=== PATIENT | female | born 1990 | race Caucasian/White ===

== ENCOUNTER → 2018-07-02 | Outpatient (REF) | payer OTHER ==
[2018-07-02 10:24] LABS: PLATELET COUNT, AUTOMATED 379 K/uL (150-450)
== END ==
PROVIDERS: ATTEND Nurse Practitioner Family
DX: R07.9 Chest pain, unspecified (principal); R05 Cough
CPT/HCPCS: 82040; 82247; 82310; 82374; 82435; 82565; 82947; 84075; 84132; 84155; 84295; 84450; 84460; 84520; 85025; 85379

== ENCOUNTER → 2018-07-18 | Outpatient (CLI) | payer OTHER ==
--- NOTE | 2018-07-18 16:55 | RADIOLOGY IMAGING REPORT ---
FACILITY: [facility] - [place] PATIENT NAME: Latanya Whitfield : 1990 MR: [id number] V: [id number] EXAM DATE: ORDERING PHYSICIAN: JYOTHI FOWLER TECHNOLOGIST: Location: [facility] Patient: Latanya Whitfield : 1990 Visit/Account:[id number] Date of Sevice: 07/18/2018 Technique: CHEST PA LAT HISTORY: Cough COMPARISON: None available Findings: The lungs are clear. No pleural effusion or pneumothorax. The cardiomediastinal silhouett e is normal. Impression: 1. No acute cardiopulmonary process. Report Dictated By: Presley Phan DO at 07/18/2018 4:51 PM Report E-Signed By: Presley Phan DO at 07/18/2018 4:52 PM WSN:[id number]
== END ==
LOC: RAD 16:25
PROVIDERS: ATTEND Physician Assistant
DX: R05 Cough (principal)
CPT/HCPCS: 71046

== ENCOUNTER → 2018-12-23 | Outpatient (CLI) | payer OTHER ==
[~2018-12-23] MED LIST: ASCO125T PO; AZEL23SP NS; FLUT16SP19 NS
== END ==
LOC: LAB 15:02
PROVIDERS: ATTEND Nurse Practitioner Family
DX: R19.7 Diarrhea, unspecified (principal)
CPT/HCPCS: 82274; 83630; 87045; 87177

== ENCOUNTER 2018-12-31 07:29 | Emergency (ER) | payer OTHER ==
--- NOTE | 2018-12-31 07:31 | ER Report ---
History and Physical Time Seen By MD: 07:27 HPI/ROS CHIEF COMPLAINT: Migraine headache HISTORY OF PRESENT ILLNESS: Patient is a 28-year-old female here with complaints of headache which started approximately 1 hour prior to arrival. Patient also endorses photosensitivity. Patient was seen here 2 days ago for similar symptoms which were more severe at which time she had a CT scan of the head, lumbar puncture completed which appear normal. Patient is alert and oriented, uncomfortable-appearing, denies taking medications to abort the headache. Patient is afebrile and hemodynamically stable at time of evaluation with no focal neurological findings REVIEW OF SYSTEMS: Constitutional: No fever, no chills. Eyes: No discharge.+ Photosensitivity ENT: No sore throat. Cardiovascular: No chest pain, no palpitations. Respiratory: No cough, no shortness of breath. Gastrointestinal: No abdominal pain, no vomiting. Genitourinary: No hematuria. Musculoskeletal: No back pain. Skin: No rashes. Neurological: + headache,, cranial nerves intact, no focal neurological deficits Allergies: Coded Allergies: peanut (Unverified Allergy, Unknown, 08/09/18) PEANUT BUTTER Home Meds Discontinued Reported Medications Ascorbic Acid (VITAMIN C) Unknown Strength Tab.chew, PO, TAB.CHEW 08/09/18 Discontinued Scripts Azelastine/Fluticasone (DYMISTA NASAL SPRAY) 23 Gm [place].pump, 1 SPRAY NS BID for 30 Days, #1 BOT 3 Refills Prov:BLANCHE DAMON JR, MD 08/28/18 Smoking Status: Never Smoker Constitutional Vital Sign - Last 24 Hours 12/31/18 07:33 Temp 98.1 Pulse 68 Resp 16 B/P (MAP) 110/65 Pulse Ox 94 O2 Delivery Room Air Physical Exam General Appearance: The patient is alert, has no immediate need for airway protection and no signs of toxicity. Uncomfortable appearing Eyes: Pupils equal and round no pallor or injection. ENT, Mouth: Mucous membranes are moist. Respiratory: There are no retractions, lungs are clear to auscultation. Cardiovascular: Regular rate and rhythm. Gastrointestinal: Abdomen is soft and non tender, no masses, bowel sounds normal. Neurological: No focal neurological deficits, cranial nerves intact Skin: Warm and dry, no rashes. Musculoskeletal: Neck is supple non tender. Extremities are nontender, nonswollen and have full range of motion. DIFFERENTIAL DIAGNOSIS: After history and physical exam differential diagnosis was considered for headache including but not limited to subarachnoid hemorrhage, migraine headache, tension headache and infectious causes such as meningitis, pharyngitis and sinusitis. Medical Decision Making Data Points Result Diagram: 12/31/18 0746 12/31/18 0746 Laboratory Hematology Test 12/31/18 07:46 White Blood Count 5.6 k/uL (4.5-11.0) Red Blood Count 4.91 M/uL (4.17-5.56) Hemoglobin 13.7 g/dL (12.0-16.0) Hematocrit 41.0 % (34.0-47.0) Mean Corpuscular Volume 83.4 fL (80.0-96.0) Mean Corpuscular Hemoglobin 28.0 pg (26.0-33.0) Mean Corpuscular Hemoglobin Concent 33.5 g/dL (32.0-36.0) Red Cell Distribution Width 14.6 % (11.5-14.5) H Platelet Count 349 K/uL (150-450) Mean Platelet Volume 7.2 fL (7.2-11.1) Neutrophils (%) (Auto) 45.2 % (39.4-72.5) Lymphocytes (%) (Auto) 45.8 % (17.6-49.6) Monocytes (%) (Auto) 7.2 % (4.1-12.4) Eosinophils (%) (Auto) 1.1 % (0.4-6.7) Basophils (%) (Auto) 0.7 % (0.3-1.4) Nucleated RBC Relative Count (auto) 0.0 /100WBC Neutrophils # (Auto) 2.5 K/uL (2.0-7.4) Lymphocytes # (Auto) 2.6 K/uL (1.3-3.6) Monocytes # (Auto) 0.4 K/uL (0.3-1.0) Eosinophils # (Auto) 0.1 K/uL (0.0-0.5) Basophils # (Auto) 0.0 K/uL (0.0-0.1) Nucleated RBC Absolute Count (auto) 0.00 K/uL Chemistry Test 12/31/18 07:46 Sodium Level 140 mmol/L (137-145) Potassium Level 3.7 mmol/L (3.5-5.0) Chloride Level 108 mmol/L (98-107) Carbon Dioxide Level 24 mmol/L (22-31) Blood Urea Nitrogen 12 mg/dl (7-18) Creatinine 0.80 mg/dl (0.52-1.04) Glomerular Filtration Rate Calc > 60.0 Random Glucose 82 mg/dl (75-110) Calcium Level 8.6 mg/dl (8.4-10.2) Total Bilirubin 0.3 mg/dl (0.2-1.3) Aspartate Amino Transf (AST/SGOT) 23 U/L (0-35) Alanine Aminotransferase (ALT/SGPT) 30 U/L (0-56) Alkaline Phosphatase 42 U/L (0-126) Total Protein 6.7 g/dl (6.3-8.2) Albumin 3.9 g/dl (3.5-5.0) Lipase 128 U/L (23-300) Human Chorionic Gonadotropin, Qual Negative (NEGATIVE) ED Course/Re-evaluation ED Course Patient is a 28-year-old female here with complaints of headache recurrence after having a more severe but similar symptoms headache 2 days ago when the patient received CT scan and a lumbar puncture which were negative. Patient also describes a vague lower abdominal discomfort so labs were also completed today including a beta hCG. Patient labs are unremarkable. Patient was given normal saline bolus, Benadryl, Toradol, Decadron, Reglan, tizanidine, Zofran. Prescription provided for tizanidine, Zofran. Patient had moderate improvement of symptoms. Return precautions were provided. PCP follow-up recommended. Decision to Disposition Date: Dec 31, 2018 Decision to Disposition Time: 09:26 Depart Departure Latest Vital Signs Vital Signs Date Time Temp Pulse Resp B/P (MAP) Pulse Ox O2 Delivery O2 Flow Rate FiO2 12/31/18 07:33 98.1 68 16 110/65 94 Room Air Impression: Primary Impression: Headache Condition: Improved Disposition: HOME OR SELF-CARE New Scripts Ondansetron 4 Mg Odt (ONDANSETRON 4 MG ODT) 4 Mg Tab.rapdis 4 MG PO ONCE, #20 TAB Prov: BRENDA HYMAN DO 12/31/18 Tizanidine Hcl (TIZANIDINE HCL) 2 Mg Capsule 2 MG PO TID PRN for MUSCLE SPASMS, #10 CAPSULE Prov: BRENDA HYMAN DO 12/31/18 Patient Instructions: Acute Headache (GEN) Additional Instructions: Please drink plenty of water. You may take 1 tablet of tizanidine as needed for muscle spasms, Zofran 1 tablet every 4-6 hours as needed for nausea and vomiting. Please return promptly if develop fevers, worsening pain, inability keep down food or fluids, visual changes. Please follow-up with your family doctor in the next 3-5 days for repeat evaluation. BRENDA HYMAN DO Dec 31, 2018 07:31
[2018-12-31] MEDS ORDERED: NS(*) 0.9% 1000 ML BAG 1,000 ML IV ONE (07:43)
[2018-12-31] MEDS ORDERED: METOCLOPRAMIDE 10 MG/2 ML SDV IVP ONE (07:45)
[2018-12-31] MEDS ORDERED: DEXAMETHASONE SOD PHOS 10MG/ML IVP ONE (07:45)
[2018-12-31] MEDS ORDERED: diphenhydrAMINE 50 MG/ML VIAL IVP ONE (07:45)
[2018-12-31] MEDS ORDERED: MAGNESIUM SUL/D5W* 1 GM/100 ML 100 ML IVPB ONE (07:45)
[2018-12-31] MEDS ORDERED: KETOROLAC 30 MG/ML VIAL IVP ONE (07:45)
[2018-12-31] MEDS ORDERED: ORPHENADRINE 60MG/2ML INJ IVP ONE (07:55)
[2018-12-31 07:58] LABS: PLATELET COUNT, AUTOMATED 349 K/uL (150-450)
[2018-12-31] MEDS ORDERED: ONDANSETRON 4 MG/2 ML VIAL IVP ONE (08:20)
[2018-12-31] MEDS ORDERED: ONDA4TAB9 PO (09:30)
[2018-12-31] MEDS ORDERED: TIZA2CAP3 PO (09:30)
[2018-12-31 09:47] VITALS: BP 101/62
== END 2018-12-31 09:49 | disposition home or self-care (01) ==
LOC: ER 07:38
DX: R51 Headache (principal)
CPT/HCPCS: 83690; 84703; 85025; J1100; J1200; J1885; J2360; J2405; J2765; J3475; J7030; 82040; 82247; 82310; 82374; 82435; 82565; 82947; 84075; 84132; 84155; 84295; 84450; 84460; 84520; 96361; 96375; 99284

== ENCOUNTER → 2019-01-13 | Outpatient (CLI) | payer BC ==
[~2019-01-13] MED LIST changes: +ONDA4TAB9 PO; +TIZA2CAP3 PO
--- NOTE | 2019-01-13 10:05 | RADIOLOGY IMAGING REPORT ---
FACILITY: [facility] - [place] PATIENT NAME: Latanya Whitfield : 1990 MR: [id number] V: [id number] EXAM DATE: ORDERING PHYSICIAN: JOSE MONROY TECHNOLOGIST: Location: [facility] Patient: Latanya Whitfield : 1990 Visit/Account:[id number] Date of Sevice: 01/13/2019 KIDNEYS EXAMINATION: Renal ultrasound. History: Frequency COMPARISON STUDIES: FINDINGS: Kidneys: Right kidney- 9.9 x 4.6 x 4.7 cm Left kidney- 10.4 x 4.4 x 5.9 cm Uniform and symmetric blood flow in each kidney by Doppler ultrasound. Hydronephrosis: none Resistive index on the right 0.55 and on the left 0.51 Bladder: Prevoid volume 271 mL. Post void residual 9.5 mL. Bilateral ureteral jets are present. Incidental note of a bicornuate uterus Abdominal aorta and IVC: Aorta and IVC are patent by Doppler ultrasound. IMPRESSION: Unremarkable renal ultrasound other than incidental note of a bicornuate uterus Report Dictated By: Camryn Rios MD at 01/13/2019 9:54 AM Report E-Signed By: Camryn Rios MD at 01/13/2019 9:56 AM SAPNAN:[id number]
== END ==
LOC: US 02:10
PROVIDERS: ATTEND Urology
DX: R35.0 Frequency of micturition (principal); R35.1 Nocturia
CPT/HCPCS: 76705

== ENCOUNTER → 2019-01-13 | Outpatient (CLI) | payer BC ==
[~2019-01-13] MED LIST changes: +GADOBENATE 529MG/1ML 15ML VIAL IVP ONE
--- NOTE | 2019-01-13 10:21 | RADIOLOGY IMAGING REPORT ---
FACILITY: [facility] PATIENT NAME: Latanya Whitfield : 1990 MR: [id number] V: [id number] EXAM DATE: ORDERING PHYSICIAN: NOA CHRISTY TECHNOLOGIST: Location: [facility] Patient: Latanya Whitfield : 1990 Visit/Account:[id number] Date of Sevice: 01/13/2019 EXAMINATION: MRI Brain without intravenous contrast MRI Brain with intravenous contrast HISTORY: Migraine. Vision changes. COMPARISON: None available. TECHNIQUE: Multi-planar, multi-sequence brain MRI was performed before and after IV gadolinium. CONTRAST: 14 mL of IV MultiHance FINDINGS: Brain volume: Normal. Sagittal midline structures: Negative. Ventricles: Negative. Acute ischemic changes: None. Hemorrhage: None. Masses / edema: None. Enhancement: Negative. Mai-white: Negative. White matter: Negative. Vessels: Negative. Extra-axial: Negative. Calvarium / scalp: Negative. Skull base: Negative. Visualized sinuses / orbits: Negative. Visualized upper neck: Negative. IMPRESSION: Normal brain MRI without and with IV contrast. Report Dictated By: Ghassan Owens MD at 01/13/2019 10:07 AM Report E-Signed By: Ghassan Owens MD at 01/13/2019 10:12 AM WSN:[id number]
== END ==
LOC: MRI 02:08
PROVIDERS: ATTEND Nurse Practitioner Family
DX: G43.909 Migraine, unspecified, not intractable, without status migrainosus (principal); H53.9 Unspecified visual disturbance
CPT/HCPCS: 70553; A9577